=== PATIENT | male | born 1970 | race Caucasian/White ===

== ENCOUNTER 2019-09-09 18:26 | Emergency (ER) | payer OTHER ==
--- NOTE | 2019-09-09 18:36 | PDOC ---
Rapid Medical Evaluation Time Seen by Provider: 09/09/19 18:35 Medical Evaluation: 09/09/19 18:35 I have performed a brief in-person evaluation of this patient. The patient presents with a chief complaint of: back pain, hx of multiple surgeries Pertinent physical exam findings: ambulatory I have ordered the following: nothing The patient will proceed to the ED for further evaluation. Discharge Disposition - Diagnosis Back pain - Referrals - Patient Instructions - Post Discharge Activity
[2019-09-09 18:52] VITALS: BP 127/76; PULSE 75; TEMP 97.8; BMI 25.9
[2019-09-09] MEDS ORDERED: KETOROLAC TROMETHAMINE 60 MG/2 ML VIAL IM ONE (18:52)
[2019-09-09] MEDS ORDERED: KETOROLAC TROMETHAMINE 60 MG/2 ML VIAL ONE (18:53)
--- NOTE | 2019-09-09 19:02 | PDOC ---
History of Present Illness - General Chief Complaint: Back Pain Stated Complaint: BACK PAIN Time Seen by Provider: 09/09/19 18:35 History Source: Patient Exam Limitations: No Limitations - History of Present Illness Initial Comments: 09/09/19 18:56 Patient is here with complaints of acute onset of recurrent low back pain. Patient has extensive back injury with surgical history since 2004 with multiple , 2012surgeries, cages and an implant placed in 2010.2011 . 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 Since that time has not used any narcotic pain medication but using marijuana with moderate pain management. Denies fever, denies any true trauma or exercise change. Denies any changes in the character of this pain and has perineal pain although no incontinence of bowel or bladder. Occurred: reports: this morning Severity: reports: severe Pain Location: reports: back Method of Injury: Yes: unknown Loss of Consciousness: no loss of consciousness Associated Symptoms (Fall): denies symptoms Past History - Travel Traveled outside of the country in the last 30 days: No Close contact w/someone who was outside of country & ill: No - Past Medical History Allergies/Adverse Reactions: Allergies Allergy/AdvReac Type Severity Reaction Status Date / Time No Known Allergies Allergy Verified 09/09/19 18:38 Home Medications: Ambulatory Orders Cyclobenzaprine HCl 10 mg PO Q8H PRN #20 tablet 09/09/19 Naproxen [Naprosyn -] 500 mg PO BID #60 tablet 09/09/19 COPD: No - Immunization History Immunization Up to Date: No - Psycho Social/Smoking Cessation Hx Smoking History: Current every day smoker Have you smoked in the past 12 months: Yes Information on smoking cessation initiated: No Hx Alcohol Use: No Drug/Substance Use Hx: No Review of Systems - Review of Systems Able to Perform ROS?: Yes Is the patient limited Senegalese proficient: Yes Constitutional: Yes: Symptoms Reported HEENTM: No: Symptoms Reported Respiratory: Yes: Symptoms reported Musculoskeletal: Yes: Symptoms Reported, See HPI, Back Pain Integumentary: Yes: Symptoms Reported All Other Systems: Reviewed and Negative *Physical Exam - Vital Signs Last Vital Signs Temp Pulse Resp BP Pulse Ox 97.8 F 75 16 127/76 100 09/09/19 18:36 09/09/19 18:36 09/09/19 18:36 09/09/19 18:36 09/09/19 18:36 - Physical Exam General Appearance: Yes: Nourished, Appropriately Dressed, Apparent Distress, Moderate Distress HEENT: positive: ROLO, Normal ENT Inspection, TMs Normal, Pharynx Normal Respiratory/Chest: positive: Lungs Clear Gastrointestinal/Abdominal: positive: Tender, Soft Musculoskeletal: positive: Decreased Range of Motion (Limited range of motion and inability to flex and extend at waist past approximately 20 degrees, patient reports is baseline), Vertebral Tenderness. negative: Normal Inspection Extremity: positive: Normal Capillary Refill. negative: Normal Range of Motion (Limited range of motion secondary to chronic low back pain and is immobility) Integumentary: positive: Normal Color, Dry, Warm, Pale Neurologic: positive: meat counter clerk II-XII NML intact, Fully Oriented, Alert, Normal Mood/Affect, Normal Response Discharge - Discharge Information Problems reviewed: Yes Clinical Impression/Diagnosis: Back pain Qualifiers: Back pain location: low back pain Chronicity: chronic Back pain laterality: unspecified Sciatica presence: with sciatica Sciatica laterality: sciatica laterality unspecified Qualified Code(s): M54.40 - Lumbago with sciatica, unspecified side; G89.29 - Other chronic pain Condition: Stable Disposition: HOME - Admission No - Follow up/Referral Referrals: [facility] [place] [Provider Group] - Patient Discharge Instructions Patient Printed Discharge Instructions: Managing Chronic Low Back Pain Additional Instructions: Rest, avoid strenuous activity or exercise until symptoms resolve Elevate, ice, or hot soaks/wet heat= whichever treatment seem to alleviate pain Naprosyn 500 mg - 1 tablet every 12 hours for pain and inflammation Cyclobenzaprine 1-10 mg tablet every 8 hours as needed for spasm, remembering will make dizzy and sleepy You will receive a call from [facility] to help organize a follow-up appointment at the medical group's clinic. OR Follow-up with private physician or [employer]. for return to pain management/possible physical therapy/other medical intervention Return to emergency department for worsened pain, swelling, fevers, or other complications - Post Discharge Activity
== END 2019-09-09 19:35 | disposition home or self-care (01) ==
LOC: JERFT 18:26
PROC: 3E0233Z Introduction of Anti-inflammatory into Muscle, Percutaneous Approach (ICD-10-PCS; principal; 2019-09-09)
DX: M54.40 Lumbago with sciatica, unspecified side (principal); G89.29 Other chronic pain
CPT/HCPCS: 72100-TC-FY; 99284-25